=== PATIENT | male | born 1945 | race Caucasian/White ===

== ENCOUNTER → 2018-07-26 | Outpatient (CLI) | payer MEDICARE ==
--- NOTE | 2018-07-26 12:31 | RADIOLOGY REPORT (SQ) ---
EXAM DESCRIPTION: MRI LUMBAR SPINE WITHOUT COMPLETED DATE/TIME: 07/26/2018 10:34 am REASON FOR STUDY: OTHER INTERVERTEBRAL DISC DEGENERATION, LUMBAR REGION (M51.36) M51.36 OTHER INTER VERTEBRAL DISC DEGENERATION, LUMBAR REGION COMPARISON: None. TECHNIQUE: Sagittal and Axial imaging includes T1, T2, STIR and gradient echo sequences. Coronal T2/ HASTE imaging. LIMITATIONS: None. FINDINGS: VISUALIZED UPPER ABDOMEN: Limited evaluation. No acute or suspicious findings suggested. SEGMENTATION: No transitional anatomy. The lowest well-developed disc space is labeled L5-S1. ALIGNMENT: Grade 1 anterolisthesis of L5 over S1 from bilateral spondylolysis VERTEBRAE: Intact. BONE MARROW: Sclerotic reactive vertebral body endplate changes at L2-3. DISC SIGNAL: Diffuse decreased T2 weighted intervertebral disc signal throughout the lumbar spine. L 5-S1 disc space loss of height with bony ankylosis of the disc space POSTERIOR ELEMENTS: Bilateral L5 spondylolysis HARDWARE: None in the spine. CORD AND CONUS: Conus is at the T12 level. SOFT TISSUES: No aortic aneurysm seen. No bulky retroperitoneal adenopathy or mass. No paraspinal mas s or fluid. T10-11: At the upper edge of the field of view. Mild bilateral foraminal narrowing from facet hyper trophy. T11-12: Mild central canal narrowing results from broad diffuse disc bulging and moderate bilateral facet and ligament hypertrophy. There is mild bilateral T11-12 foraminal narrowing. T12-L1: No significant central or foraminal stenosis. Minimal facet hypertrophy. L1-L2: No significant central or foraminal encroachment. Minimal posterior disc bulging, mild bilate ral facet hypertrophy. L2-L3: Moderate central canal stenosis results from broad diffuse posterior disc bulging and moderate to marked bilateral facet and ligament hypertrophy. There is effacement of the CSF around the lumba r nerve roots best shown on axial T2 image 11 and sagittal image 9. Elsewhere at L2-3, high-grade right, moderate left foraminal narrowing is present. L3-L4: Broad diffuse posterior disc bulging and moderate bilateral facet and ligament hypertrophy cau se borderline central canal stenosis. There is [id number] bilateral foraminal narrowing withou t definite exit L3 nerve root impingement. L4-L5: Broad diffuse posterior disc bulge and bulky bilateral facet and ligament hypertrophy cause mi ld central canal stenosis. Moderate right, mild left foraminal narrowing without definite exiting L4 nerve root impingement. L5-S1: Grade 1 anterolisthesis of L5 over S1 related to bilateral spondylolysis. Mild central canal narrowing at L5-S1. Moderate bilateral foraminal narrowing with partial effacement of the fat planes around the exiting L5 nerve roots bilaterally. SACRUM: Visualized upper sacrum intact. OTHER: No other significant findings. IMPRESSION: Diffuse degenerative changes as above. Central canal stenosis at L2-3. Multilevel fora mckinley narrowing. TECHNICAL DOCUMENTATION: JOB ID: [id number] [employer]- All Rights Reserved Reading location - IP/workstation name: [email or web address]
== END ==
LOC: RAD 09:12
PROVIDERS: ATTEND Physician Assistant
DX: M51.36 Other intervertebral disc degeneration, lumbar region (principal)
CPT/HCPCS: 72148